=== PATIENT | male | born 1975 | race Caucasian/White ===

== ENCOUNTER 2024-04-22 01:20 | Emergency (ER) | payer OTHER ==
[~2024-04-22] VITALS: Ht 180.3 cm; Wt 69.8 kg
[2024-04-22] MEDS: BOOSTRIX VACCINE (TETANUS/DIPHTH/ACEL. PERTUSSIS) 0.5ML SYR IM.IMMUN ONE (05:58)
[2024-04-22] MEDS: RABIES VACCINE HUMAN 2.5 INTERNATIONAL UNITS/ML VIAL IM.IMMUN ONE (05:59)
[2024-04-22] MEDS: RABIES IMMUNE GLOBULIN 1500 INTERNATIONAL UNIT/5ML VIAL IM.IMMUN ONE (06:00)
[2024-04-22 06:37] VITALS: BP 124/74; TEMP 98.6; O2SAT 99
== END 2024-04-22 06:39 | disposition home or self-care (01) ==
LOC: M ED 01:20
DX: Z23 Encounter for immunization (principal); Z20.3 Contact with and (suspected) exposure to rabies; S50.871A Other superficial bite of right forearm, initial encounter; W54.0XXA Bitten by dog, initial encounter; Y92.89 Other specified places as the place of occurrence of the external cause; Y93.9 Activity, unspecified; Y99.9 Unspecified external cause status

== ENCOUNTER 2024-12-13 19:34 | Emergency (ER) | payer OTHER ==
[~2024-12-13] VITALS: Ht 180.3 cm; Wt 71.4 kg
[2024-12-13 19:38] VITALS: BP 142/87; TEMP 97.7; O2SAT 99
[2024-12-13] MEDS: FLUORESCEIN OPHTH 1MG STRIP OS ONE (20:30)
[2024-12-13] MEDS: PROPARACAINE 0.5% OPHTH SOL 15ML OS ONE (20:30)
[2024-12-13] MEDS ORDERED: ERYT5OIN25 OS (20:34)
[2024-12-13] MEDS: ERYTHROMYCIN OPHTH OINT OS ONE (21:55)
== END 2024-12-13 22:07 | disposition home or self-care (01) ==
LOC: M ED 19:34
DX: S05.02XA Injury of conjunctiva and corneal abrasion without foreign body, left eye, initial encounter (principal); W26.8XXA Contact with other sharp object(s), not elsewhere classified, initial encounter; Y93.89 Activity, other specified; Y92.9 Unspecified place or not applicable; Y99.9 Unspecified external cause status; Z88.0 Allergy status to penicillin